=== PATIENT | female | born 1975 | race Caucasian/White ===

== ENCOUNTER 2022-04-13 21:53 | Outpatient (REF) | payer MEDICAID, SELFPAY ==
[2022-04-13 22:27] LABS: ALT 32 U/L (14-59); AST 27 U/L (15-37); Albumin 3.8 g/dL (3.4-5.0); Alkaline Phosphatase 88 U/L (46-116); Anion Gap 9.2 mmol/L (3-11); BUN 9 mg/dL (7-18); Bilirubin, Total 0.2 mg/dL (0.2-1.0); CO2 27.8 mmol/L (21.0-32.0); Calcium 9.3 mg/dL (8.5-10.1); Calculated LDL 138 mg/dL (<100); Chloride 102 mmol/L (98-107); Cholesterol 218 mg/dL (<200); Glucose 84 mg/dL (74-106); HDL Cholesterol 50 mg/dL (40-60); Hemoglobin A1C 5.9 % (<5.7); Potassium 4.3 mmol/L (3.5-5.1); Sodium 139 mmol/L (136-145); Total Protein 7.9 g/dL (6.4-8.2); Triglyceride 151 mg/dL (<150)
[2022-04-17 09:47] LABS: HIV-1/2 Ag & Ab Screen Negative (Negative)
[2022-04-17 10:00] LABS: Hepatitis C Ab w Rflx HCV PCR Negative (Negative)
[2022-04-18 11:47] LABS: Syphilis Serology (RPR) Negative (Negative)
== END 2022-04-13 21:54 | disposition home or self-care (01) ==
LOC: NCHCN 21:53
PROVIDERS: Visit Provider Nurse Practitioner Family
DX: E78.5 Hyperlipidemia, unspecified (principal); Z11.4 Encounter for screening for human immunodeficiency virus [HIV]; Z11.3 Encounter for screening for infections with a predominantly sexual mode of transmission; Z11.59 Encounter for screening for other viral diseases; Z86.32 Personal history of gestational diabetes
CPT/HCPCS: 80053; 80061; 86803; 87389; 83036; 86592

== ENCOUNTER 2022-11-30 09:14 | Outpatient (REF) | payer MEDICAID, SELFPAY ==
--- OUTSIDE RECORDS SUMMARY | 2022-11-30 09:16 | XMS_ITS | CCD ---
Author Name Unknown Address [address] [place] [address] [phone] Organization Unknown Address [address] [place] [address] [phone] Care Team Providers Care Pecan Sheller Name Role Phone SUZAN PAGE Attending Physician [phone] Vital Signs Unknown or Not Available. Allergies Allergy Code Allergy Type Reaction Status LITHIUM {Clinical monitoring unavailable} 0 Drug allergy UNKNOWN Active ASA (aspirin) 1191 Drug allergy UNKNOWN Active DEPAKOTE 580648 Drug allergy UNKNOWN Active Procedures Unknown or Not Available. History of Immunizations Unknown or Not Available. Problems Unknown or Not Available. Results Unknown or Not Available. Active Medications Medication Code Dose Units Frequency Route Modificatio n Start Date/Time Acetaminophen 325MG Oral Tablet 055351 650 MILLIGRAMS NEEDED ORAL 7 19:17 Prescription Detail TAKE 650 MILLIGRAMS ORAL NEEDED cloNIDine HCl 0.2MG Oral Tablet 233443 0.2 MILLIGRAMS DAILY ORAL 7 19:17 Prescription Detail TAKE 0.2 MILLIGRAMS ORAL DAILY Geodon 60MG Oral Capsule 402915 120 MILLIGRAMS DAILY ORAL 7 19:17 Prescription Detail TAKE 120 MILLIGRAMS ORAL DAILY HYDROXYZINE HCL 100-125 MG TABLET 0 1 BEDTIME ORAL 04/15/2017 19:17 Prescription Detail TAKE 1 ORAL BEDTIME Ibuprofen 200MG Oral Tablet 827496 600 MILLIGRAMS NEEDED ORAL 017 19:17 Prescription Detail TAKE 600 MILLIGRAMS ORAL NEEDED traZODone hydrochloride 100MG Oral Tablet [id number] 100 MILLIGRAMS DAILY ORAL 7 19:17 Prescription Detail TAKE 100 MILLIGRAMS ORAL DAILY WELLBUTRIN 75 MG TABLET 0 75 MILLIGRAMS DAILY ORAL 7 19:17 Prescription Detail TAKE 75 MILLIGRAMS ORAL DAILY Medications Administered During Visit Unknown or Not Available. Encounters Encounter Diagnosis Diagnosis Code Start Date Other low back pain M5459 05/09/2022 Social History Smoking Status Code Start Date End Date Current every day smoker [id number] Patient Decision Aids Unknown or Not Available. Discharge Instructions You were admitted to [facility] on 05/09/2022 10:04 with a principal diagnosis of Other low back pain You were discharged from [facility] on 06/22/2022 10:59 Should you have any questions prior to discharge, please contact a member of your healthcare team. If you have left the hospital and have any questions, please contact your primary care physician. Chief Complaint and Reason For Visit Unknown or Not Available. Function Status Unknown or Not Available. Plan of Care Unknown or Not Available. Referral/Transition of Care Unknown or Not Available.
--- OUTSIDE RECORDS SUMMARY | 2022-11-30 09:17 | XMS_ITS | CCD ---
Author Name Unknown Address [address] [place] [address] [phone] Organization Unknown Address [address] [place] [address] [phone] Care Team Providers Care Aeronautical Engineer Name Role Phone SUZAN PAGE Attending Physician [phone] Vital Signs Unknown or Not Available. Allergies Allergy Code Allergy Type Reaction Status LITHIUM {Clinical monitoring unavailable} 0 Drug allergy UNKNOWN Active ASA (aspirin) 1191 Drug allergy UNKNOWN Active DEPAKOTE 905351 Drug allergy UNKNOWN Active Procedures Unknown or Not Available. History of Immunizations Unknown or Not Available. Problems Unknown or Not Available. Results Unknown or Not Available. Active Medications Medication Code Dose Units Frequency Route Modificatio n Start Date/Time Acetaminophen 325MG Oral Tablet 957648 650 MILLIGRAMS NEEDED ORAL 7 19:17 Prescription Detail TAKE 650 MILLIGRAMS ORAL NEEDED cloNIDine HCl 0.2MG Oral Tablet 767343 0.2 MILLIGRAMS DAILY ORAL 7 19:17 Prescription Detail TAKE 0.2 MILLIGRAMS ORAL DAILY Geodon 60MG Oral Capsule 154289 120 MILLIGRAMS DAILY ORAL 7 19:17 Prescription Detail TAKE 120 MILLIGRAMS ORAL DAILY HYDROXYZINE HCL 100-125 MG TABLET 0 1 BEDTIME ORAL 04/15/2017 19:17 Prescription Detail TAKE 1 ORAL BEDTIME Ibuprofen 200MG Oral Tablet 924528 600 MILLIGRAMS NEEDED ORAL 017 19:17 Prescription Detail TAKE 600 MILLIGRAMS ORAL NEEDED traZODone hydrochloride 100MG Oral Tablet 051001 100 MILLIGRAMS DAILY ORAL 7 19:17 Prescription Detail TAKE 100 MILLIGRAMS ORAL DAILY WELLBUTRIN 75 MG TABLET 0 75 MILLIGRAMS DAILY ORAL 7 19:17 Prescription Detail TAKE 75 MILLIGRAMS ORAL DAILY Medications Administered During Visit Unknown or Not Available. Encounters Encounter Diagnosis Diagnosis Code Start Date Encounter for screening mamm ogram for malignant neoplasm of breast [id number] 03/06/2022 Social History Smoking Status Code Start Date End Date Current every day smoker [id number] Patient Decision Aids Unknown or Not Available. Discharge Instructions You were admitted to [facility] on 03/06/2022 07:41 with a principal diagnosis of Encounter for screening mammogram for malignant neoplasm of breast You were discharged from [facility] on 03/06/2022 07:41 Should you have any questions prior to discharge, please contact a member of your healthcare team. If you have left the hospital and have any questions, please contact your primary care physician. Chief Complaint and Reason For Visit Chief Complaint Date of Onset SCR Function Status Unknown or Not Available. Plan of Care Unknown or Not Available. Referral/Transition of Care Unknown or Not Available.
[2022-11-30 16:17] LABS: Hemoglobin A1C 5.8 % (<5.7)
[2022-11-30 16:53] LABS: ALT 25 U/L (14-59); AST 21 U/L (15-37); Albumin 3.2 g/dL (3.4-5.0); Alkaline Phosphatase 76 U/L (46-116); Anion Gap 14.2 mmol/L (3-11); BUN 9 mg/dL (7-18); Bilirubin, Total 0.2 mg/dL (0.2-1.0); CO2 20.8 mmol/L (21.0-32.0); CREATININE 1.1 mg/dL (0.55-1.02); Calcium 8.7 mg/dL (8.5-10.1); Calculated LDL 109 mg/dL (<100); Chloride 103 mmol/L (98-107); Cholesterol 183 mg/dL (<200); Estimated GFR 62.76 (mL/min/1.73m2); Glucose 110 mg/dL (74-106); HDL Cholesterol 42 mg/dL (40-60); Potassium 4.2 mmol/L (3.5-5.1); Sodium 138 mmol/L (136-145); Total Protein 7.3 g/dL (6.4-8.2); Triglyceride 163 mg/dL (<150)
== END 2022-11-30 09:15 | disposition home or self-care (01) ==
LOC: LBN 09:14
PROVIDERS: Visit Provider Psychiatry & Neurology Psychiatry
DX: F31.9 Bipolar disorder, unspecified (principal); Z79.899 Other long term (current) drug therapy; R79.89 Other specified abnormal findings of blood chemistry
CPT/HCPCS: 80053; 80061; 83036

== ENCOUNTER 2023-02-28 12:26 | Outpatient (REF) | payer MEDICAID, SELFPAY ==
[2023-02-28 15:38] LABS: HCT 38.8 % (36.0-46.0); HGB 12.9 g/dL (11.2-15.7); MCH 27.9 pg (27.0-33.0); MCHC 33.2 % (32.0-36.0); MCV 84 fL (80-95); MPV 10.7 fL (8.0-11.0); Platelet Count 466 10^3/uL (130-400); RBC 4.63 10^6/uL (3.93-5.22); RDW 15.5 % (11.7-14.6); RDW-SD 47.1 fL; WBC 13.43 10^3/uL (4.4-10.8)
[2023-02-28 15:59] LABS: TSH 1.67 uIU/mL (0.36-3.74)
[2023-02-28 16:12] LABS: Hemoglobin A1C 5.7 % (<5.7)
== END 2023-02-28 12:27 | disposition home or self-care (01) ==
LOC: NCHCN 12:26
PROVIDERS: Visit Provider Nurse Practitioner Family
DX: R73.03 Prediabetes (principal); Z79.899 Other long term (current) drug therapy
CPT/HCPCS: 85027; 83036; 84443

== ENCOUNTER 2023-09-10 14:06 | Outpatient (REF) | payer MEDICAID, SELFPAY ==
[2023-09-10 14:49] LABS: Abs Immature Grans 0.04 10^3/uL (0.0-0.06); Absolute Basophil Count 0.09 10^3/uL (0.0-0.2); Absolute Lymphocyte Count 3.67 10^3/uL (1.2-3.4); Absolute Monocyte Count 0.76 10^3/uL (0.1-0.8); Basophils % 0.8 %; Eosinophils % 1.8 %; HCT 38.8 % (36.0-46.0); HGB 12.8 g/dL (11.2-15.7); Immature Grans % 0.4 %; Lymphocytes % 33.8 %; MCH 28.8 pg (27.0-33.0); MCV 87 fL (80-95); MPV 10.4 fL (8.0-11.0); Neutrophils % 56.2 %; Platelet Count 426 10^3/uL (130-400); RBC 4.44 10^6/uL (3.93-5.22); RDW 13.8 % (11.7-14.6); RDW-SD 44.2 fL; WBC 10.86 10^3/uL (4.4-10.8)
[2023-09-10 15:29] LABS: ALT 26 U/L (14-59); AST 11 U/L (15-37); Albumin 3.5 g/dL (3.4-5.0); Alkaline Phosphatase 84 U/L (46-116); Anion Gap 12.6 mmol/L (3-11); BUN 9 mg/dL (7-18); Bilirubin, Total 0.2 mg/dL (0.2-1.0); CO2 20.4 mmol/L (21.0-32.0); CREATININE 0.9 mg/dL (0.55-1.02); Calcium 8.6 mg/dL (8.5-10.1); Calculated LDL 117 mg/dL (<100); Chloride 106 mmol/L (98-107); Cholesterol 194 mg/dL (<200); Estimated GFR 79.35 (mL/min/1.73m2); Glucose 78 mg/dL (74-106); HDL Cholesterol 40 mg/dL (40-60); Potassium 4.6 mmol/L (3.5-5.1); Sodium 139 mmol/L (136-145); TSH (W/Ref FT4) 1.94 uIU/mL (0.36-3.74); Triglyceride 188 mg/dL (<150)
[2023-09-10 19:29] LABS: Hemoglobin A1C 5.6 % (<5.7)
== END 2023-09-10 14:07 | disposition home or self-care (01) ==
LOC: NCHCN 14:06
PROVIDERS: PCP Nurse Practitioner Family; Visit Provider Nurse Practitioner Family
DX: R73.03 Prediabetes (principal); Z79.899 Other long term (current) drug therapy; D75.839 Thrombocytosis, unspecified; E66.9 Obesity, unspecified
CPT/HCPCS: 80053; 80061; 83036; 84443; 85025

== ENCOUNTER 2024-02-14 10:56 | Outpatient (REF) | payer MEDICAID, SELFPAY ==
--- NOTE | 2024-02-14 08:20 | PAPFT_PTH ---
PATIENT: Nina Sanchez LOC: [facility] U#:[id number] AGE/SX: 48/F ROOM: RE02/14/[address]: Nina Romano : 1975 BED: DIS: 02/14/2024 SPEC #: [id number] RECD: 02/14/24 17:55 STATUS: BLAYNE REChastity #: [id number] MAICO: 02/14/24 08:[address]: Nina Romano DEPT: [facility] Cytology RECD BY: Alexandra Zambrano Tissues: 1 - CX/ENDOCX FOR PAP SMEARS Procedures: PAP THIN PREP/UVM Screening HPV DNA PROBE Comments: [id number] (HPV 16 & 18/45) (CHLAMYDIA/GC)
[2024-02-15 11:58] LABS: Chlamydia Result Negative (Negative); GC Result Negative (Negative)
== END 2024-02-14 10:57 | disposition home or self-care (01) ==
LOC: NCHCN 10:56
PROVIDERS: PCP Nurse Practitioner Family; Visit Provider Nurse Practitioner Family
DX: Z12.4 Encounter for screening for malignant neoplasm of cervix (principal)
CPT/HCPCS: 87491; 87591; 88142; 87624

== ENCOUNTER 2024-07-17 16:51 | Outpatient (REF) | payer MEDICAID, SELFPAY ==
[2024-07-17 14:45] LABS: HCT 41.1 % (36.0-46.0); HGB 13.8 g/dL (11.2-15.7); MCH 29.2 pg (27.0-33.0); MCHC 33.6 % (32.0-36.0); MCV 87 fL (80-95); Platelet Count 435 10^3/uL (130-400); RBC 4.73 10^6/uL (3.93-5.22); RDW 14.5 % (11.7-14.6); RDW-SD 46.5 fL; WBC 10.09 10^3/uL (4.4-10.8)
[2024-07-17 15:01] LABS: ALT 25 U/L (14-59); AST 23 U/L (15-37); Albumin 3.9 g/dL (3.4-5.0); Alkaline Phosphatase 82 U/L (46-116); Anion Gap 9.5 mmol/L (3-11); BUN 9 mg/dL (7-18); Bilirubin, Total 0.3 mg/dL (0.2-1.0); CO2 24.5 mmol/L (21.0-32.0); Calcium 9.4 mg/dL (8.5-10.1); Calculated LDL 119 mg/dL (<100); Chloride 105 mmol/L (98-107); Cholesterol 185 mg/dL (<200); Estimated GFR 69.93 (mL/min/1.73m2); Glucose 90 mg/dL (74-106); HDL Cholesterol 49 mg/dL (>or=50); Potassium 4.5 mmol/L (3.5-5.1); Sodium 139 mmol/L (136-145); Total Protein 7.7 g/dL (6.4-8.2); Triglyceride 85 mg/dL (<150)
[2024-07-17 18:23] LABS: Hemoglobin A1C 5.5 % (<5.7)
== END 2024-07-17 16:52 | disposition home or self-care (01) ==
LOC: NCHCN 16:51
PROVIDERS: PCP Nurse Practitioner Family; Visit Provider Nurse Practitioner Family
DX: E78.5 Hyperlipidemia, unspecified (principal); R73.03 Prediabetes; Z79.899 Other long term (current) drug therapy
CPT/HCPCS: 80053; 80061; 85027; 83036